=== PATIENT | male | born 1950 ===

== ENCOUNTER 2019-04-06 11:53 | Emergency (ER) | payer BC ==
--- NOTE | 2019-04-06 12:42 | EDM.PDOC ---
ED HPI GENERAL MEDICAL PROBLEM - General Chief Complaint: ENT Problem Stated Complaint: NOSE BLEED Time Seen by Provider: 04/06/19 12:04 Source of Information: Reports: Patient, Family History Limitations: Reports: No Limitations - History of Present Illness INITIAL COMMENTS - FREE TEXT/NARRATIVE: The patient presents with epistaxis. 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 He was going to go to bed and his nose started bleeding. The blood is coming from his right nostril. He has never had a nose bleed like this before. He is not on any blood thinners. He does not have hypertension as far as he knows. He had no trauma to his nose. He has no fever, chills, cough, congestion, chest pain or shortness of breath. Onset: Gradual Duration: Hour(s): Location: Reports: Other (Right nostril) Improves with: Reports: None Worsens with: Reports: None Associated Symptoms: Reports: No Other Symptoms - Related Data Allergies Allergy/AdvReac Type Severity Reaction Status Date / Time No Known Allergies Allergy Verified 04/06/19 12:03 Home Meds: Home Meds . [No Known Home Meds] 04/06/19 [History] Past Medical History - Past Health History Medical/Surgical History: Denies Medical/Surgical History Social & Family History - Tobacco Use Smoking Status *Q: Never Smoker Second Hand Smoke Exposure: No - Caffeine Use Caffeine Use: Reports: Coffee - Recreational Drug Use Recreational Drug Use: No ED ROS ENT - Review of Systems Review Of Systems: See Below Constitutional: Reports: No Symptoms HEENT: Reports: Nosebleed Respiratory: Reports: No Symptoms Cardiovascular: Reports: No Symptoms Endocrine: Reports: No Symptoms GI/Abdominal: Reports: No Symptoms : Reports: No Symptoms Musculoskeletal: Reports: No Symptoms Skin: Reports: No Symptoms ED EXAM, ENT - Physical Exam Exam: See Below Exam Limited By: No Limitations General Appearance: Alert, No Apparent Distress Ears: Normal External Exam Nose: Active Bleeding (Very small bleed to the anterior septum) Mouth/Throat: Normal Inspection Head: Atraumatic, Normocephalic Neck: Normal Inspection Respiratory/Chest: No Respiratory Distress ED ENT PROCEDURES - Epistaxis Procedure Indication: Epistaxis Recent anticoagulants/antiplatlets: No Uncontrolled HTN: No Recent septal/nasal surgery: No Site of bleeding: Right Nare Clearing of clots: Patient Blew Nose Ice pack to area: No Chemical cautery: Silver Nitrate Topical Complications: No Course - Vital Signs Last Recorded V/S: Last Vital Signs Temp 97.9 F 04/06/19 12:04 Pulse 78 04/06/19 12:04 Resp 18 04/06/19 12:04 BP 171/100 H 04/06/19 12:04 Pulse Ox 98 04/06/19 12:04 - Re-Assessments/Exams Free Text/Narrative Re-Assessment/Exam: 04/06/19 12:41 I used some silver nitrate to stop the bleeding. His blood pressure was high but it is better now. Family members are here and they say he is drinking heavy lately. 04/06/19 13:01 There is no more bleeding. I had my nurse put some antibiotic ointment into each nostril. I will have him do that and discharge him home. I will have him follow up with his blood pressure. Departure - Departure Time of Disposition: 13:05 Disposition: Home, Self-Care 01 Condition: Good Clinical Impression: Epistaxis - Discharge Information *PRESCRIPTION DRUG MONITORING PROGRAM REVIEWED*: No *COPY OF PRESCRIPTION DRUG MONITORING REPORT IN PATIENT STEPHANIE: No Referrals: PCP,Unknown [Ordering Only Provider] - Ambreen Freitas PA-C [[facility]] - 1 Week Forms: ED Department Discharge Additional Instructions: Put antibiotic ointment in each nostril 2 times per day for 3 days. That will keep your nose moist and hopefully avoid more bleeding. Follow up with Kelsey Freitas within a week and have your blood pressure checked. Your blood pressure was high today. Try to stop drinking or reduce the amount you drink. That can cause health problems.
== END 2019-04-06 13:11 | disposition home or self-care (01) ==
LOC: JD.ED 11:53
DX: R04.0 Epistaxis (principal)
CPT/HCPCS: 30901; 99283